=== PATIENT | female | born 1965 | race Hispanic/Latino ===

== ENCOUNTER 2020-02-20 10:25 | Emergency (ER) | payer OTHER, SELFPAY ==
--- NOTE | ~2020-02-20 | US_ITS ---
EXAMINATION: US right upper quadrant EXAM DATE: 02/20/2020 11:47 INDICATION: Right upper quadrant pain. TECHNIQUE: Multiple grayscale and Doppler images of the abdomen right upper quadrant were obtained (b y a technologist who performed the scan) and subsequently reviewed. There is no prior study for jessica lakhani. FINDINGS: The pancreatic head and body are normal in appearance. The pancreatic tail is not visualized. There is echogenic liver parenchyma, hepatic steatosis. Anechoic lesion consistent with cyst in left live r lobe measuring 1.7 cm. There is no evidence of intrahepatic biliary duct dilation. Portal venous flow was seen in the hepatopedal, normal direction and has normal Doppler waveform. No right-sided h ydronephrosis. Common bile duct measures 3 mm, which is normal. The gallbladder wall is normal in thickness, with mo derate amount of distention. No sonographic evidence of pericholecystic fluid. There is cholelithia sis. IMPRESSION: 1. Cholelithiasis, moderately distended but otherwise unremarkable gallbladder. Reviewed, dictated and finalized at location A. IMPRESSION: 1. Cholelithiasis, moderately distended but otherwise unremarkable gallbladder .
[2020-02-20 10:37] VITALS: PULSE 77
--- NOTE | 2020-02-20 10:41 | ECG_ITS ---
Measurements Intervals [place] Rate: 76 P: 27 [place]: 149 QRS: 16 QRSD: 87 T: 2 QT: 371 QTc: 419 Interpretive Statements SINUS RHYTHM BORDERLINE T WAVE ABNORMALITY- INFERIOR LEADS BORDERLINE ECG Electronically Signed On 02-20-2020 10:51:12 CDT by Ted Cowan D.O.
--- NOTE | 2020-02-20 11:02 | ED.CHESTPAIN ---
HPI - Chest Pain General Chief Complaint: Chest Pain <Otf Danielle PA-C - Last Filed: 02/20/20 13:45> Stated Complaint: epigastric pain <Otf Danielle PA-C - Last Filed: 02/20/20 13:45> Time Seen by Provider: 02/20/20 10:30 <Otf Danielle PA-C - Last Filed: 02/20/20 13:45> Source: patient <Otf Danielle PA-C - Last Filed: 02/20/20 13:45> Mode of arrival: ambulatory <Otf Danielle PA-C - Last Filed: 02/20/20 13:45> Limitations: no limitations <Otf Danielle PA-C - Last Filed: 02/20/20 13:45> History of Present Illness HPI narrative: Patient is a 54-year-old female who presents with epigastric abdominal pain that woke her from her sleep 2 days ago has remained constant and is nonradiating took Pepcid with no improvement. Denies any fever chills nausea vomiting URI symptoms or any dyspnea. Patient denies similar occurrence in the past patient presents per private vehicle in no distress. <Otf Danielle PA-C - Last Filed: 02/20/20 13:45> Related Data Allergies/Adverse Reactions: Allergies Allergy/AdvReac Type Severity Reaction Status Date / Time No Known Allergies Allergy Verified 02/20/20 10:38 <Otf Danielle PA-C - Last Filed: 02/20/20 13:45> Review of Systems Review of Systems: All systems reviewed & are unremarkable except as noted in HPI and below <Otf Danielle PA-C - Last Filed: 02/20/20 13:45> [facility] Past Medical History Medical History: Medical History (Updated 02/20/20 @ 13:42 by Otf Danielle PA-C) Obesity <Otf Danielle PA-C - Last Filed: 02/20/20 13:45> Surgical History Surgical History: Surgical History (Updated 02/20/20 @ 11:04 by Otf Danielle PA-C) H/O section <Otf Danielle PA-C - Last Filed: 02/20/20 13:45> Social History Social History: Social History (Updated 02/20/20 @ 11:04 by JUAN Lemus Smoking status: Never smoker <Otf Danielle PA-C - Last Filed: 02/20/20 13:45> Exam Narrative: Exam Narrative: GENERAL: Well-appearing, obese, and in no acute distress. HEAD: Normocephalic, atraumatic. EYES: PERRLA and EOMI. ENT: Nares clear, no rhinorrhea or epistaxis. Mucous membranes moist. CHEST: Clear to auscultation. No respiratory distress. No wheezes rales or rhonchi HEART: Regular rate and rhythm. No murmur heard. Normal peripheral pulses. ABDOMEN: Soft, epigastric tenderness to palpation, nondistende EXTREMITIES: Normal range of motion. No edema. SKIN: Warm, dry, no rash. NEURO: No focal deficits. Alert and oriented x3. PSYCH: Normal mood and affect. <Otf Danielle PA-C - Last Filed: 02/20/20 13:45> Course Course Emergency Course: Patient in the room aware of case findings treatment plan and diagnosis agreeing to follow-up with primary care as instructed and general surgery aware of the case findings treatment plan and diagnosis resting comfortably in the room in no distress noting that the GI cocktail resolved her pain. Patient agreeing to follow-up with general surgery and primary care <Otf Danielle PA-C - Last Filed: 02/20/20 13:45> Consultations Consultation #1: Spoke with general surgery who has reviewed the case and notes that the patient can follow-up on an outpatient basis provided with reasons to return does not recommend any antibiotics at this time <Otf Danielle PA-C - Last Filed: 02/20/20 13:45> Date: 02/20/20 <Otf Danielle PA-C - Last Filed: 02/20/20 13:45> Vital Signs Vital signs: Vital Signs Pulse Rate 77 02/20/20 10:37 Temperature 98.2 F 02/20/20 11:55 Pulse Rate 76 02/20/20 13:57 Respiratory Rate 16 02/20/20 13:57 Blood Pressure 116/63 02/20/20 13:57 Pulse Oximetry 96 02/20/20 13:57 <Otf Danielle PA-C - Last Filed: 02/20/20 13:45> Vital Signs Pulse Rate 77 02/20/20 10:37 Temperature 98.2 F 02/20/20 11:55 Pulse Rate
[2020-02-20 11:22] LABS: Add Urine Microscopic? YES; Appearance Urine Clear (Clear); Bacteria Urine Trace /hpf; Bilirubin Urine Negative (Negative); Blood Urine 1+ (Negative); Color Urine Colorless (Yellow); Glucose Urine UA Negative (Negative); Ketones Urine Negative (Negative); Leukocyte Esterase Ur Negative LEU/UL (Negative); Nitrate Urine Negative (Negative); Protein Urine Negative (Negative); RBC Urine 0-2 /hpf (0-2); Specific Grav Ur 1.008 (1.001-1.035); Squamous Epithelial Cell Urine Rare /hpf (Few); Urobilinogen Urine Negative mg/dL (<2.0); WBC Urine 0-3 /hpf
[2020-02-20] MEDS: LIDOCAINE HCL 2% VISC SOLN 15 ML UDC 20 ML PO (11:52)
[2020-02-20] MEDS: MAG HYDROX/AL HYDROX/SIMETH 30 ML UDC PO (11:52)
--- NOTE | 2020-02-20 11:54 | PC.NURSE ---
Pt back in room from CT scan. Called Keena Giraldo in regards to starting IV on pt. Had to leave message for her to call back,.
[2020-02-20 11:55] VITALS: PULSE 85; RESP 15; TEMP 36.8; O2SAT 98
[2020-02-20 12:11] LABS: Basophils Percent Auto 0.2 % (0.2-1.2); Eosinophils Percent Auto 0.2 % (0-4.4); Hematocrit 40.8 % (37.0-47.0); Hemoglobin 12.4 g/dL (12.0-15.0); Immature Granulocyte Absolute 0.02 K/mm3 (0.00-0.031); Immature Granulocyte Percent A 0.2 % (0-0.5); Lymphocytes Absolute Auto 1.39 K/mm3 (0.9-3.2); Lymphocytes Percent Auto 15.4 % (18.3-44.2); Mean Corpuscular HGB Conc 30.4 g/dl (32-36); Mean Corpuscular Volume 72.3 fl (80-100); Mean Platelet Volume 9.9 fl (7.4-10.4); Monocytes Absolute Auto 0.6 K/mm3 (0.1-0.6); Monocytes Percent Auto 6.1 % (2.6-8.5); Neutrophils Percent Auto 77.9 % (45.5-73.1); Platelet Count Result 317 k/mm3 (150-375); Red Blood Count 5.64 M/mm3 (4.2-5.4); Red Cell Distribution Width 17.3 % (11.5-14.5)
[2020-02-20 12:25] LABS: Alanine Aminotransferase 162 U/L (4-35); Albumin Level 4.5 g/dL (3.5-5.1); Alkaline Phosphatase 128 U/L (38-126); Aspartate Amino Transferase 75 U/L (14-36); Bilirubin,Total 0.5 mg/dL (0.2-1.3); Blood Urea Nitrogen 16 mg/dL (7-17); Calcium 9.1 mg/dL (8.4-10.2); Carbon Dioxide 25 mmol/L (22-30); Chloride 105 mmol/L (98-107); Estimated Glomerular Filt Rate > 60; Glucose 98 mg/dL (65-105); Lipase 90 U/L (23-300); Potassium 3.9 mmol/L (3.4-5.0); Sodium 138 mmol/L (137-145)
[2020-02-20] MEDS: SODIUM CHLORIDE 0.9% IV 1,000 ML 999 ML IV CONT (12:34)
[2020-02-20] MEDS: PANTOPRAZOLE SODIUM IV 40 MG VIAL IV PUSH (12:35)
[2020-02-20] MEDS: ONDANSETRON INJ 4 MG/2 ML VIAL IV PUSH (12:35)
[2020-02-20 12:40] LABS: Troponin I < 0.012 ng/mL (0.000-0.034)
[2020-02-20 13:57] VITALS: BP 116/63; PULSE 76; RESP 16; O2SAT 96
== END 2020-02-20 13:58 | disposition home or self-care (01) ==
PROVIDERS: Emergency Medicine Emergency Medical Services; Emergency Provider General Practice; PCP Emergency Medicine
DX: R10.13 Epigastric pain (principal); E66.9 Obesity, unspecified; Z68.33 Body mass index [BMI] 33.0-33.9, adult
CPT/HCPCS: 36415; 76705; 80053; 81001; 81025; 83690; 84484; 85025; 93005; 96361; 96365; 96375; 99284; A9270; C9113; J0131; J2405; J7030

== ENCOUNTER 2020-02-29 09:32 | Outpatient (CLI) | payer OTHER, SELFPAY ==
--- NOTE | 2020-02-29 09:36 | ECG_ITS ---
Measurements Intervals [place] Rate: 74 P: 26 [place]: 152 QRS: 17 QRSD: 79 T: 2 QT: 379 QTc: 422 Interpretive Statements SINUS RHYTHM LOW QRS VOLTAGE IN PRECORDIAL LEADS BORDERLINE ECG Electronically Signed On 02-29-2020 10:10:32 CDT by Ted Cowan D.O.
[2020-02-29 10:20] LABS: Alanine Aminotransferase 31 U/L (4-35); Albumin Level 4.3 g/dL (3.5-5.1); Alkaline Phosphatase 93 U/L (38-126); Amylase 84 U/L (30-110); Aspartate Amino Transferase 26 U/L (14-36); Bilirubin,Total 0.5 mg/dL (0.2-1.3)
== END 2020-02-29 09:33 | disposition home or self-care (01) ==
PROVIDERS: PCP Emergency Medicine; Visit Provider Surgery
DX: Z01.812 Encounter for preprocedural laboratory examination (principal); K80.20 Calculus of gallbladder without cholecystitis without obstruction
CPT/HCPCS: 36415; 80076; 82150; 86850; 86900; 86901; 93005

== ENCOUNTER 2020-03-01 16:34 | Outpatient (CLI) | payer OTHER, SELFPAY ==
[2020-03-01 18:41] LABS: Hematocrit 39.4 % (37.0-47.0); Hemoglobin 11.8 g/dL (12.0-15.0); Mean Corpuscular HGB Conc 29.9 g/dl (32-36); Mean Corpuscular Hemoglobin 21.8 pg (26-34); Mean Corpuscular Volume 72.8 fl (80-100); Mean Platelet Volume 9.9 fl (7.4-10.4); Platelet Count Result 292 k/mm3 (150-375); Red Blood Count 5.41 M/mm3 (4.2-5.4); Red Cell Distribution Width 16.9 % (11.5-14.5); White Blood Count 7.1 K/mm3 (4.5-10.0)
[2020-03-01 18:53] LABS: Alanine Aminotransferase 29 U/L (4-35); Albumin Level 4.1 g/dL (3.5-5.1); Alkaline Phosphatase 87 U/L (38-126); Aspartate Amino Transferase 22 U/L (14-36); Bilirubin,Total 0.3 mg/dL (0.2-1.3); INR 0.9; Prothrombin Time 11.9 Seconds (11.1-14.7)
[2020-03-01 18:54] LABS: Partial Thromboplastin Time 29.1 SECONDS (22.3-36.8)
[2020-03-01 19:00] LABS: Transferrin 340 mg/dL (206-381)
[2020-03-01 19:06] LABS: Iron 26 ug/dL (37-170)
[2020-03-01 19:15] LABS: Erythrocyte Sedimentation Rate 12 mm/hr (0-20); Percent Iron Saturation 5 % (20-50)
[2020-03-01 19:39] LABS: Hepatitis B Surface Antigen Negative (Negative)
[2020-03-01 19:42] LABS: Ferritin 4.81 ng/mL (11.1-264)
[2020-03-01 19:45] LABS: HAV RESULT Negative (Negative); Hepatitis B Core IgM Result Negative (Negative)
[2020-03-01 19:56] LABS: Hepatitis C Virus Antibody Negative (Negative)
[2020-03-06 11:37] LABS: Mitochondrial (M2) Ab (IgG) <=20.0 U (<=20.0)
[2020-03-06 11:51] LABS: Alpha-1-Antitrypsin, QN 125 mg/dL (83-199); Ceruloplasmin 29 mg/dL (18-53)
[2020-03-07 11:34] LABS: Actin Antibody (IgG) 20 U (<20)
== END 2020-03-01 16:35 | disposition home or self-care (01) ==
PROVIDERS: PCP Emergency Medicine; Visit Provider Internal Medicine Gastroenterology
DX: K76.0 Fatty (change of) liver, not elsewhere classified (principal); K80.20 Calculus of gallbladder without cholecystitis without obstruction
CPT/HCPCS: 36415; 80074; 80076; 82103; 82390; 82728; 83516; 83520; 83540; 83550; 84466; 85027; 85610; 85652; 85730; 86038

== ENCOUNTER 2020-03-03 01:02 | Outpatient (CLI) | payer OTHER, SELFPAY ==
[2020-03-03 18:30] LABS: SARS-CoV-2 RNA PCR Negative
== END 2020-03-03 01:03 | disposition home or self-care (01) ==
LOC: ANHCOVIDDT 01:03
PROVIDERS: PCP Emergency Medicine; Visit Provider Surgery
DX: Z01.818 Encounter for other preprocedural examination (principal); Z11.59 Encounter for screening for other viral diseases
CPT/HCPCS: 87635; C9803; U0003

== ENCOUNTER 2020-03-06 02:05 | Day surgery (SDC) | payer OTHER, SELFPAY ==
[2020-02-27 11:50] VITALS: BMI 33.4
[2020-03-06] VITALS (8 sets, daily range): BP systolic 107–124; BP diastolic 65–76; PULSE 78–107; RESP 14–107; TEMP 36.1–36.4; O2SAT 93–100
--- NOTE | 2020-03-06 10:01 | P.PNAN_ITS ---
Anes - Initial Pre Proc Eval Procedure: Operation Date: 03/06/20 14:00 Proposed Procedures p Laparoscopic Cholecystectomy, Possible Open - Sid Rivers DO Date/Time: 03/06/20 10:01 Surgeon: Sid Rivers DO Pre Op Diagnosis: Symptomatic Cholelithiasis Patient Data Age: 54 Gender: F Height: 1.47 m Weight: 72.57 kg Allergies Allergy/AdvReac Type Severity Reaction Status Date / Time No Known Allergies Allergy Verified 03/06/20 11:39 Home Medications Medication Instructions Recorded Confirmed Type hydrocodone-acetaminophen [[place]] 1 tablet PO Q6H PRN #14 tablet 02/20/20 02/27/20 Rx hyoscyamine sulfate [Levsin] 0.125 mg PO QID PRN #10 tablet 02/20/20 02/27/20 Rx pantoprazole [Protonix] 40 mg PO QAM #10 tablet 02/20/20 02/27/20 Rx ascorbic acid (vitamin C) 500 mg PO DAILY 02/27/20 02/27/20 History ondansetron 4 mg PO Q6H PRN 02/27/20 02/27/20 History Patient hx anesthesia problems: post op nausea/vomiting Family hx anesthesia problems: none PMFSH Social History Social History Smoking status: Never smoker Alcohol intake: never Substance use: never Gender identity (if verbalized by the patient): Female Spiritual care concerns: No Anes - Eval Final PreProcedure Day of Procedure 03/06/20 10:01 Patient weight: obese Heart: regular rate and rhythm Lungs: clear to auscultation and normal air movement Airway: Mallampati scale class II Neurological: alert and oriented Last oral intake: >/= 8 hours ASA classification: II Emergent: no Anesthetic plan: proceed Anesthesia type and monitoring: general ETT and standard monitoring Informed Consent: The patient's anesthetic plan and its attendant risks and benefits were discussed with the patient/family/POA. Questions were solicited and answers provided to the satisfaction of the patient/family/POA.
--- NOTE | 2020-03-06 11:17 | WPDHPUPDATE1 ---
History and Physical Update Update Date/Time: 03/06/20 11:17 History and Physical has been reviewed, including an updated exam of the patient. There are NO changes in the patient's condition. Risks, benefits, and alternatives have been discussed and questions answered. Patient agrees to proceed with procedure.
[2020-03-06] MEDS: KETOROLAC 15 MG/ML VIAL (*BKC) IV PUSH (11:30)
[2020-03-06] MEDS: LACTATED RINGERS 1,000 ML 30 ML IV CONT (11:30)
[2020-03-06] MEDS: SCOPOLAMINE 1.5 MG PATCH TRANSDERM (11:50)
[2020-03-06] MEDS: ONDANSETRON INJ 4 MG/2 ML VIAL IV PUSH (11:50)
[2020-03-06] MEDS: FAMOTIDINE 20 MG/2 ML VIAL IV PUSH (11:50)
[2020-03-06] MEDS: ceFAZolin 2 GM/D5W 50 ML 2 GM/50 ML BAG IVPB (12:13)
[2020-03-06] MEDS: BUPIVACAINE/EPINEPHRINE 0.5% 10 ML VIAL 30 ML INFILTRATE (12:25)
--- NOTE | 2020-03-06 13:10 | PM.PROC ---
Procedure Note - Detailed Date of procedure: 03/06/20 Pre-op diagnosis: Symptomatic Cholelithiasis Post-op diagnosis: same Procedure performed: Laparoscopic Cholecystectomy Description of procedure: Procedure as well as risks, benefits, and alternatives were discussed with patient. Written consent was obtained and placed in chart prior to procedure. The patient was brought back to surgical suite. Patient was placed in supine position on operating table. Time-out was done to confirm patient and procedure. Patient was then intubated by the anesthesia department. Abdomen was prepped and draped in sterile fashion using chlorhexidine prep. 0.5% bupivacaine with epinephrine was infiltrated at each site of incision. A 5 millimeter incision was made near the umbilicus, and a 5 millimeter Optiview trocar was advanced through the abdominal layers under direct visualization. Once inside the abdominal cavity, carbon dioxide was insufflated to create a pneumoperitoneum. The camera was inserted and the abdomen was inspected. No immediate abnormalities were identified. The patient was placed in reverse Trendelenburg position and rotated slightly to the left. An 11 millimeter incision was made in the subxiphoid region, and an 11 millimeter trocar was inserted under direct visualization. Two 5 millimeter incisions were made in the right upper quadrant, and two 5 millimeter trocars were inserted under direct visualization. The gallbladder was identified and grasped at the fundus and retracted superiorly. It was then grasped at the infundibulum retracted laterally. Careful dissection around the neck of the gallbladder was performed using blunt dissection with a [place] grasper and hook electrocautery. The cystic duct was identified, and a window was created behind it. The cystic artery was also identified and a window was created behind it. The critical view of safety was identified, visualizing the cystic duct running directly into the neck of the gallbladder, and the cystic artery running directly into the wall of the gallbladder. A 5 millimeter clip cable tower operator was then used to place 2 clips proximally and 1 clip distally on both the cystic duct and cystic artery. They were then both transected using endoscopic scissors. Once safely away from the kat hepatitis, the gallbladder was dissected free from the liver bed using hook electrocautery. Hemostasis was achieved along the way. The gallbladder was removed completely and then removed through the subxiphoid port. The liver bed was then inspected. Hemostasis appeared adequate, and our clips appeared secure. The area was gently irrigated with sterile saline. No other abnormalities were seen. The patient was flattened out in bed, and 1 final inspection was made around the abdominal cavity. The subxiphoid port was removed, and a Delbert Zac cone was used to approximate the fascia with an 0-Vicryl simple interrupted suture. The remaining ports were then removed under direct visualization, the camera was removed, and the pneumoperitoneum was released. The skin of the incisions was approximated using 4-0 Monocryl subcuticular sutures. Exofin glue was applied on top. The patient was then awakened from anesthesia, extubated, and transferred to recovery. Anesthesia: GETA and local (0.5% bupivicaine with epi) Surgeon: Sid Rivers DO Estimated blood loss (mL): 5 Drains: No Packing: No Pathology: yes Complications: No immediate complications Condition: stable (Patient tolerated procedure well, and is currently resting comfortably in recovery.) Disposition: same day Findings: Letha presents with RUQ and epigastric pain that radiates to her back for about 1 year. She reports this comes and goes. Nothing seems to help her pain. She reports she had BBQ ribs, fried zucchini for dinner then work up at 3 a.m. with pain. She went to [facility]-20 for chest pain and back and she was given a GI cocktail that seem t
== END 2020-03-06 15:11 | disposition home or self-care (01) ==
PROVIDERS: PCP Emergency Medicine; Visit Provider Surgery
PROC: 0FT44ZZ Resection of Gallbladder, Percutaneous Endoscopic Approach (ICD-10-PCS; CPT 47562; principal; 2020-03-06 14:00)
DX: K80.10 Calculus of gallbladder with chronic cholecystitis without obstruction (principal); E66.9 Obesity, unspecified; Z68.32 Body mass index [BMI] 32.0-32.9, adult
CPT/HCPCS: 47562; 88304; A9270; J0690; J1100; J1885; J2250; J2405; J2704; J3010; J7030; J7120

== ENCOUNTER 2020-03-16 15:31 | Outpatient (CLI) | payer OTHER, SELFPAY ==
--- NOTE | ~2020-03-16 | MM_ITS ---
EXAMINATION: MM screening bon BI w francisco HISTORY: Screening mammogram TECHNIQUE: Craniocaudal and mediolateral oblique 3-D tomosynthesis images were obtained and synthetic 2-D images were generated. CAD analysis was submitted and interpreted. COMPARISON: 05/14/2018 bilateral digital screening mammogram BREAST PARENCHYMAL COMPOSITION: There are scattered areas of fibroglandular density. FINDINGS: There is no evidence of suspicious mass, calcification, or architectural distortion to sugg est malignancy in either breast. There has been no suspicious interval change. IMPRESSION: 1. No mammographic evidence of malignancy. 2. Recommend routine screening mammography in one year. BI-RADS Category 1: Negative Reviewed, dictated and finalized at location A.
== END 2020-03-16 15:32 | disposition home or self-care (01) ==
LOC: ANHIMG 15:42
PROVIDERS: PCP Emergency Medicine; Visit Provider Emergency Medicine
DX: Z12.31 Encounter for screening mammogram for malignant neoplasm of breast (principal)
CPT/HCPCS: 77063; 77067

== ENCOUNTER 2020-05-18 08:06 | Outpatient (CLI) | payer OTHER, SELFPAY ==
--- NOTE | ~2020-05-18 | US_ITS ---
EXAMINATION: US thyroid DATE: 05/18/2020 08:43 INDICATION: Hyperthyroidism TECHNIQUE: Multiple ultrasound images of the thyroid were obtained. COMPARISON: None. FINDINGS: The right thyroid lobe measures 4.0 x 1.7 x 1.8 cm. The left thyroid lobe measures 4.0 x 1.4 x 1.5 c m. There is diffuse heterogeneous echogenicity and coarsened echotexture throughout the thyroid glan d. There are couple wider than tall solid hypoechoic nodules with somewhat poorly defined margins and without internal echogenic foci. (TI-RADS 4, moderately suspicious , FNA if >=1.5 cm, annual followu p is >1 cm) measuring 9 mm in maximal diameter on the right and 8 mm on the left. IMPRESSION: 1. A couple <1 cm TI RADS 4 nodules in the left and right thyroid lobe which do not meet threshold fo r biopsy or follow-up. 2. Diffuse heterogeneously decreased echogenicity with coarsened echotexture throughout the thyroid w hich can be seen with thyroiditis. Reviewed, dictated and finalized at location B. IMPRESSION: 1. A couple <1 cm TI RADS 4 nodules in the left and right thyroid lobe which do not meet threshold for biopsy or follow-up. 2. Diffuse heterogeneously decreased echogenicity with coarsened echotexture th roughout the thyroid which can be seen with thyroiditis.
== END 2020-05-18 08:07 | disposition home or self-care (01) ==
PROVIDERS: PCP Emergency Medicine; Visit Provider Emergency Medicine
DX: E05.90 Thyrotoxicosis, unspecified without thyrotoxic crisis or storm (principal)
CPT/HCPCS: 76536

== ENCOUNTER 2020-05-25 11:14 | Outpatient (CLI) | payer OTHER, SELFPAY ==
[2020-05-25 12:41] LABS: Free T4 Free Thyroxine 1.03 ng/mL (0.78-2.19)
[2020-05-28 04:49] LABS: Thyroid Peroxidase Antibodies 462 IU/mL (<9)
[2020-05-30 05:28] LABS: Triiodothyronine T3 Free 2.9 pg/mL (2.3-4.2)
== END 2020-05-25 11:15 | disposition home or self-care (01) ==
LOC: ANHLAB 11:16
PROVIDERS: PCP Emergency Medicine; Visit Provider Emergency Medicine
DX: E06.9 Thyroiditis, unspecified (principal)
CPT/HCPCS: 36415; 84439; 84443; 84481; 86376

== ENCOUNTER 2020-06-11 08:07 | Emergency (ER) | payer OTHER, SELFPAY ==
[2020-06-11 08:16] VITALS: BP 120/90; PULSE 107; RESP 18; TEMP 36.2; O2SAT 98
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
[2020-06-11] MEDS: SILVER SULFADIAZINE 1% CR 400 GM JAR (*BKC) 1 APPLIC TOPICAL (08:41)
[2020-06-11] MEDS: TETANUS,DIPHTHERIA,AC PERTUSSIS ADULT (0.5 ML) BOOSTRIX IM (08:41)
[2020-06-11] MEDS: IBUPROFEN 400 MG TABLET 800 MG PO (08:41)
== END 2020-06-11 09:29 | disposition home or self-care (01) ==
PROVIDERS: Emergency Provider Emergency Medicine; PCP Emergency Medicine
DX: E07.9 Disorder of thyroid, unspecified (principal); T21.21XA Burn of second degree of chest wall, initial encounter; T31.0 Burns involving less than 10% of body surface; X12.XXXA Contact with other hot fluids, initial encounter; Z23 Encounter for immunization
CPT/HCPCS: 16020; 90471; 90715; 99283; A9270

== ENCOUNTER 2020-06-16 11:02 | Emergency (ER) | payer OTHER, SELFPAY ==
[2020-06-16 11:06] VITALS: BP 125/79; PULSE 99; RESP 18; TEMP 35.9; O2SAT 100
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
[2020-06-16 12:38] LABS: Basophils Percent Auto 0.5 % (0.2-1.2); Eosinophils Absolute Auto 0.1 K/mm3 (0-0.3); Eosinophils Percent Auto 0.7 % (0-4.4); Hematocrit 45.1 % (37.0-47.0); Hemoglobin 13.9 g/dL (12.0-15.0); Immature Granulocyte Absolute 0.03 K/mm3 (0.00-0.031); Immature Granulocyte Percent A 0.4 % (0-0.5); Lymphocytes Absolute Auto 2.02 K/mm3 (0.9-3.2); Lymphocytes Percent Auto 24.1 % (18.3-44.2); Mean Corpuscular HGB Conc 30.8 g/dl (32-36); Mean Corpuscular Hemoglobin 24.1 pg (26-34); Mean Corpuscular Volume 78.2 fl (80-100); Mean Platelet Volume 9.6 fl (7.4-10.4); Monocytes Absolute Auto 0.5 K/mm3 (0.1-0.6); Monocytes Percent Auto 6.2 % (2.6-8.5); Neutrophils Absolute Auto 5.7 K/mm3 (1.3-6.7); Neutrophils Percent Auto 68.1 % (45.5-73.1); Platelet Count Result 295 k/mm3 (150-375); Red Blood Count 5.77 M/mm3 (4.2-5.4); Red Cell Distribution Width 19.3 % (11.5-14.5); White Blood Count 8.4 K/mm3 (4.5-10.0)
== END 2020-06-16 12:52 | disposition home or self-care (01) ==
PROVIDERS: Emergency Medicine Emergency Medical Services; Emergency Provider Emergency Medicine; PCP Emergency Medicine
DX: N61.0 Mastitis without abscess (principal); E07.9 Disorder of thyroid, unspecified; E66.9 Obesity, unspecified; Z68.30 Body mass index [BMI] 30.0-30.9, adult
CPT/HCPCS: 36415; 85025; 99283

== ENCOUNTER 2020-08-08 15:44 | Outpatient (CLI) | payer OTHER, SELFPAY ==
--- NOTE | ~2020-08-08 | XR_ITS ---
EXAMINATION: XR sinus <3V EXAM DATE: 08/08/2020 16:25 INDICATION: Lacrimal tear duct surgery. TECHNIQUE: Frontal projection of these sinuses, orbits. There is no prior study for comparison. FINDINGS: Some dental fillings, no other radiopaque foreign bodies. Sinuses appear clear. IMPRESSION: No orbital metal. Reviewed, dictated and finalized at location A. PER AND TURNER IMPRESSION: No orbital metal.
--- NOTE | ~2020-08-08 | MR_ITS ---
EXAMINATION: MR abdomen wo/w con DATE: 08/08/2020 17:24 INDICATION: Liver mass. TECHNIQUE: Magnetic resonance imaging (MRI) of the abdomen was performed without and with 13 mL Multi Mikey intravenous contrast. Sequences included coronal T2-weighted FS FSE, coronal and axial FS FIEST A, axial T2-weighted FSE, coronal LAVA-flex, axial STIR FSE, axial DWI, axial dual-echo T1-weighted F SPGR, and axial LAVA. Postcontrast sequences included coronal LAVA-flex and a time course of axial LA VA. COMPARISON: None. FINDINGS: There is diffuse hepatic steatosis. There is a 15 mm cyst in left hepatic lobe. The gallbladder is ab sent. The spleen, pancreas, adrenal glands, and right kidney are normal. There is a 9 mm cyst in left kidney. There are no dilated loops of bowel. There are no pathologically enlarged lymph nodes. There is no free intraperitoneal fluid. IMPRESSION: 1. 15 mm benign cyst in the liver. 2. Diffuse hepatic steatosis. Reviewed, dictated and finalized at location A. WORKER
[2020-08-08 16:47] LABS: Estimated Glomerular Filt Rate 58
== END 2020-08-08 15:45 | disposition home or self-care (01) ==
PROVIDERS: PCP Emergency Medicine; Visit Provider Internal Medicine Gastroenterology
DX: K76.89 Other specified diseases of liver (principal); K76.0 Fatty (change of) liver, not elsewhere classified
CPT/HCPCS: 70210; 74183; A9577

== ENCOUNTER 2021-03-16 13:16 | Emergency (ER) | payer OTHER, SELFPAY ==
[2021-03-16 13:32] VITALS: BP 108/77; PULSE 86; RESP 16; TEMP 36.1; O2SAT 97
--- NOTE | 2021-03-16 13:37 | ED.URI ---
HPI - URI/Sore Throat General Chief Complaint: Upper Respiratory Infection Stated Complaint: sore throat/ear pain/moore Time Seen by Provider: 03/16/21 13:37 Source: patient Mode of arrival: ambulatory Limitations: no limitations History of Present Illness HPI Narrative: Letha Page is a 55 yo female with a prior history of hypertension, repair, [facility] of sinus congestion and sore throat x3 to 4 days She had Covid June after heart surgery that was done. She had a second Covid vaccine on Thursday Related Data Home Medications Medication Instructions Recorded Confirmed nitrofurantoin monohyd/m-cryst 1 mg PO BID 03/16/21 03/16/21 valacyclovir 1,000 mg PO DAILY 03/16/21 03/16/21 Allergies Allergy/AdvReac Type Severity Reaction Status Date / Time No Known Allergies Allergy Verified 03/16/21 13:58 Review of Systems Review of Systems: CONSTITUTIONAL: Denies fever, chills, sweats. EYES: Denies visual changes, redness, discharge. ENT: Denies rhinorrhea, has congestion, has sore throat, otalgia. Sinus congestion CARDIOVASCULAR: Denies chest pain, palpitations, edema. RESPIRATORY: Denies dyspnea, wheezing, cough GASTROINTESTINAL: Denies abdominal pain, nausea, vomiting, diarrhea. GENITOURINARY: Denies dysuria, hematuria, abnormal discharge SKIN: Denies rash or itching. NEUROLOGIC: Denies numbness, or focal weakness. PSYCHIATRIC: Denies anxiety or depression. [facility] Past Medical History Medical History (Updated 03/16/21 @ 14:16 by Mary Watson CNP) History of thyroid disease Obesity Surgical History Surgical History H/O section Hx laparoscopic cholecystectomy Family History Family History Mother Hypertension Diabetes mellitus Social History Social History Smoking status: Never smoker Alcohol intake: never Substance use: never Gender identity (if verbalized by the patient): Female Spiritual care concerns: No Comments At time of signature, I agree with nursing past medical, surgical, social and family history. There is no relevant family history pertinent to the presenting complaint. Exam Narrative: GENERAL: This is a well-nourished, well-developed patient, in mild distress. HEAD: normocephalic, atraumatic. EYES: Sclera clear/white. Vision is grossly intact. EARS: External ears normal, auditory canals pink and without drainage, TMs moderate bulging. Hearing grossly intact. NOSE: External nose normal without nasal discharge, nares without redness, no rhinorrhea. THROAT: Mucous membranes moist, posterior pharynx mild erythema NECK: Neck supple, non-tender CARDIOVASCULAR: Regular rate and rhythm without murmurs, gallops, or rubs. RESPIRATORY: Clear to auscultation. Breath sounds equal bilaterally. No wheezes, rales, or rhonchi. GASTROINTESTINAL: Abdomen soft, SKIN: warm, intact with no suspicious lesions or rash, good texture and turgor. NEURO: awake, alert, and oriented to person, place and time. There were no obvious focal neurologic abnormalities. Steady gait EXTREMITIES: Normal range of motion. BACK: Nontender without deformity Course Course Emergency Course: Patient comes to [facility] with her daughter for assessment of upper respiratory systems including head congestion bilateral ear pain and sore throat Covid test negative-PCR sent Strep test negative Started on Z-Ronnell and prednisone, Zyrtec Vital Signs Vital signs: Vital Signs Temperature 97.0 F L 03/16/21 13:32 Pulse Rate 86 03/16/21 13:32 Respiratory Rate 16 03/16/21 13:32 Blood Pressure 108/77 03/16/21 13:32 Pulse Oximetry 97 03/16/21 13:32 Temperature 97.0 F L 03/16/21 13:32 Pulse Rate 86 03/16/21 13:32 Respiratory Rate 16 03/16/21 13:32 Blood Pressure 108/77 03/16/21 13:32 Pulse Oxim
[2021-03-18 18:30] LABS: SARS-CoV-2 RNA PCR Negative
== END 2021-03-16 14:25 | disposition home or self-care (01) ==
PROVIDERS: Emergency Provider Nurse Practitioner; PCP Emergency Medicine
DX: J01.10 Acute frontal sinusitis, unspecified (principal); Z20.822 Contact with and (suspected) exposure to COVID-19; E66.9 Obesity, unspecified; Z68.31 Body mass index [BMI] 31.0-31.9, adult; I10 Essential (primary) hypertension; E07.9 Disorder of thyroid, unspecified
CPT/HCPCS: 87081; 87426; 87880; 99213; C9803; G0463; U0003; U0005

== ENCOUNTER 2021-05-16 10:44 | Outpatient (CLI) | payer OTHER, SELFPAY ==
--- NOTE | ~2021-05-16 | XR_ITS ---
XR foot LT min 3V DATE: 05/16/2021 11:05 INDICATION: Left foot pain TECHNIQUE: 4 views COMPARISON: None FINDINGS: There is plantar calcaneal enthesopathy and minimal posterior calcaneal enthesopathy. There is mild osteoarthritis at the first metatarsophalangeal joint. No fracture or dislocation, periosteal reaction or bone destruction. IMPRESSION: Mild osteoarthritis at first metatarsophalangeal joint Calcaneal enthesopathy Reviewed, dictated and finalized at location [facility].
--- NOTE | ~2021-05-16 | XR_ITS ---
XR knee RT 3V DATE: 05/16/2021 11:05 INDICATION: Right knee pain TECHNIQUE: 3 views COMPARISON: 12/2003 right knee FINDINGS: No fracture or dislocation or joint effusion, periosteal reaction or bone destruction, radi opaque interarticular loose body or chondrocalcinosis. Joint spaces are preserved. IMPRESSION: Negative Reviewed, dictated and finalized at location [facility]. IMPRESSION: Negative
== END 2021-05-16 10:45 | disposition home or self-care (01) ==
LOC: ANHIMG 10:47
PROVIDERS: PCP Emergency Medicine; Visit Provider Physician Assistant
DX: M77.32 Calcaneal spur, left foot (principal); M19.072 Primary osteoarthritis, left ankle and foot; M25.561 Pain in right knee
CPT/HCPCS: 73562; 73630

== ENCOUNTER 2021-08-08 08:33 | Emergency (ER) | payer OTHER, SELFPAY ==
[2021-08-08 08:49] VITALS: BP 130/85; PULSE 102; RESP 16; TEMP 36.5; O2SAT 100
--- NOTE | 2021-08-08 08:54 | ED.URI ---
HPI - URI/Sore Throat General Chief Complaint: Upper Respiratory Infection Stated Complaint: sore throat Time Seen by Provider: 08/08/21 08:54 Source: patient, RN notes reviewed and old records reviewed Mode of arrival: ambulatory Limitations: no limitations History of Present Illness HPI Narrative: 55-year-old female who presents to [facility] with complaints of sore throat, headache, coughing which is productive of yellowish mucus since yesterday. Patient reports that she has taken some mucus DM for her cough without resolution of symptoms. Patient reports that she has had Covid vaccinations but she has not had a flu shot this year. Patient denies any shortness of breath denies any fevers chills or any body aches. Related Data Home Medications Medication Instructions Recorded Confirmed ergocalciferol (vitamin D2) 1,250 mcg PO DAILY 08/08/21 08/08/21 levothyroxine 25 mcg PO DAILY 08/08/21 08/08/21 valacyclovir 500 mg PO DAILY 08/08/21 08/08/21 Allergies Allergy/AdvReac Type Severity Reaction Status Date / Time No Known Allergies Allergy Verified 08/08/21 09:11 Review of Systems Review of Systems: CONSTITUTIONAL: Denies fever, chills, or sweats. EYES: Denies visual changes, redness, or discharge. ENT: Positive rhinorrhea, congestion, sore throat, no otalgia. CARDIOVASCULAR: Denies chest pain, palpitations, or edema. RESPIRATORY: Positive cough no dyspnea. GASTROINTESTINAL: Denies abdominal pain, nausea, vomiting, or diarrhea. GENITOURINARY: Denies dysuria or hematuria. SKIN: Denies rash or itching. MUSCULOSKELETAL: Denies back pain, joint pain, no body aches NEUROLOGIC: Positive headache, no numbness, or weakness. PSYCHIATRIC: Denies anxiety or depression. All systems reviewed & are unremarkable except as noted in HPI and below PMFSH Past Medical History Medical History (Updated 08/08/21 @ 09:24 by Catherine Day NP) History of thyroid disease Obesity Surgical History Surgical History H/O section Hx laparoscopic cholecystectomy Family History Family History Mother Hypertension Diabetes mellitus Social History Social History Smoking status: Never smoker Alcohol intake: never Substance use: never Gender identity (if verbalized by the patient): Female Spiritual care concerns: No Comments At time of signature, agree with nursing past medical, surgical, social and family history. There is no relevant family history pertinent to the presenting complaint Exam Narrative: GENERAL: Well-appearing, well-nourished, and in no acute distress. HEAD: Normocephalic, atraumatic. EYES: PERRLA and EOMI. ENT: Nares mild redness with clear rhinorrhea no epistaxis. Mucous membranes moist. TMs normal with good light reflex. Throat mildly red no exudates or lesions no tonsil enlargement NECK: Supple. No lymphadenopathy CHEST: Clear to auscultation. No respiratory distress. Positive cough SaO2 100% on room air HEART: Regular rate and rhythm. No murmur heard. Normal peripheral pulses. ABDOMEN: Soft, nontender, nondistended, normal active bowel sounds. EXTREMITIES: Normal range of motion. No edema. SKIN: Warm, dry, no rash. NEURO: No focal deficits. Alert and oriented x3. Course Course Level of Care: Express Care Visit Vital Signs Vital signs: Vital Signs Temperature 36.5 C 08/08/21 08:49 Pulse Rate 102 H 08/08/21 08:49 Respiratory Rate 16 08/08/21 08:49 Blood Pressure 130/85 08/08/21 08:49 Pulse Oximetry 100 08/08/21 08:49 Temperature 36.5 C 08/08/21 08:49 Pulse Rate 102 H 08/08/21 08:49 Respiratory Rate 16 08/08/21 08:49 Blood Pressure 130/85 08/08/21 08:49 Pulse Oximetry 100 08/08/21 08:49 MDM - URI/Sore Throat Differential Diagnosis Differential diagnosis: Likely upper respirato
== END 2021-08-08 09:30 | disposition home or self-care (01) ==
PROVIDERS: Emergency Provider Registered Nurse; PCP Physician Assistant
DX: R05.9 Cough, unspecified (principal); J02.9 Acute pharyngitis, unspecified; J06.9 Acute upper respiratory infection, unspecified; E07.9 Disorder of thyroid, unspecified; E66.9 Obesity, unspecified; Z68.31 Body mass index [BMI] 31.0-31.9, adult
CPT/HCPCS: 87081; 87880; 99213; G0463

== ENCOUNTER → 2021-08-14 02:26 | Outpatient (CLI) | payer OTHER, SELFPAY ==
[2021-08-15 01:23] LABS: SARS-CoV-2 RNA PCR Positive
== END ==
PROVIDERS: PCP Family Medicine; Visit Provider Family Medicine
DX: U07.1 COVID-19 (principal)
CPT/HCPCS: C9803; U0003; U0005

== ENCOUNTER 2023-02-13 11:29 | Emergency (ER) | payer OTHER, SELFPAY ==
--- NOTE | ~2023-02-13 | US_ITS ---
US breast RT limited DATE: 02/13/2023 14:14 INDICATION: Right breast erythema, tenderness, subareolar and inferior subareolar area TECHNIQUE: Real-time imaging of subareolar and inferior subareolar area COMPARISON: 03/16/2020 bilateral screening mammogram FINDINGS: No suspicious mass or shadowing or abscess is identified. Last screening mammogram was 03/16/2020. Bilateral screening mammogram examinations recommended. IMPRESSION: No abscess suspicious mass is identified Recommendation: Bilateral screening mammogram Reviewed, dictated and finalized at [facility]. Reviewed, dictated and finalized at location [facility].
[2023-02-13 11:33] VITALS: BP 123/77; PULSE 114; RESP 16; TEMP 36.6; O2SAT 98
--- NOTE | 2023-02-13 13:40 | ED.GENADULT ---
HPI - General Adult General Chief complaint: Skin/Abscess/Foreign Body Stated complaint: breast pain Time Seen by Provider: 02/13/23 11:51 Source: patient Mode of arrival: ambulatory Limitations: no limitations History of Present Illness HPI narrative: This is a 57-year-old female who presents to the ED with chief complaint of right breast pain, redness and swelling for the past 2 days. States she has had normal mammograms in the past. She denies drainage. Reports the area is tender to touch. Reports it is mildly swollen compared to the left side. Denies any recent injuries, lesions. Denies fevers, chills, nausea, vomiting or any further complaint. Related Data Home Medications Medication Instructions Recorded Confirmed ergocalciferol (vitamin D2) 1,250 1,250 mcg PO DAILY 08/08/21 08/08/21 mcg (50,000 unit) capsule levothyroxine 25 mcg tablet 25 mcg PO DAILY 08/08/21 08/08/21 valacyclovir 500 mg tablet 500 mg PO DAILY 08/08/21 08/08/21 Allergies Allergy/AdvReac Type Severity Reaction Status Date / Time No Known Allergies Allergy Verified 02/13/23 12:31 [facility] Past Medical History Medical History (Updated 02/13/23 @ 19:25 by Dionicio Cano PA-C) History of thyroid disease Obesity Surgical History Surgical History H/O section Hx laparoscopic cholecystectomy Family History Family History Mother Hypertension Diabetes mellitus Social History Social History Smoking status: Never smoker Alcohol intake: never Substance use: never Living arrangements: with family Occupation/Education: unemployed Gender identity (if verbalized by the patient): Female Spiritual care concerns: No Exam Narrative: GENERAL: Well-appearing, well-nourished, and in no acute distress. HEAD: Normocephalic, atraumatic. EYES: PERRLA and EOMI. ENT: Nares clear, no rhinorrhea or epistaxis. Mucous membranes moist. Oropharynx without tonsillar hypertrophy exudate or other lesions. NECK: Supple. No adenopathy or masses. CHEST: No respiratory distress. Clear to auscultation. No wheezes rales or rhonchi HEART: Regular rate and rhythm. No murmur heard. Normal peripheral pulses. ABDOMEN: Soft, nontender, nondistended, normal active bowel sounds. MSK: Normal range of motion. No edema. SKIN: Warm, dry, no rash. NEURO: Alert and oriented x3. No focal deficits. PSYCH: Normal mood and affect. Breast exam done with female RN hospital tray service worker present: There is an area of erythema to the inferior right breast and inferior areola. It is tender to touch. There seems to be an area of swelling around the areola. No drainage. Bedside ultrasound does not reveal any obvious abscess. Left breast is intact. Course Vital Signs Vital signs: Vital Signs Temperature 97.8 F 02/13/23 11:33 Pulse Rate 114 H 02/13/23 11:33 Respiratory Rate 16 02/13/23 11:33 Blood Pressure 123/77 02/13/23 11:33 Pulse Oximetry 98 02/13/23 11:33 Oxygen Delivery Room Air 02/13/23 11:33 Temperature 97.8 F 02/13/23 11:33 Pulse Rate 74 02/13/23 15:43 Respiratory Rate 18 02/13/23 15:43 Blood Pressure 123/77 02/13/23 11:33 Pulse Oximetry 97 02/13/23 15:43 Oxygen Delivery Room Air 02/13/23 11:33 Medical Decision Making [facility] Narrative Medical decision making narrative: This is a 57-year-old female who presents to the ED with chief complaint of right breast pain and tenderness for the past couple of days. Vitals show initial tachycardia to 114 but this resolved to 74. She is hemodynamically stable. No systemic signs on exam. She does have some focal tenderness and erythema to the right breast with a lump palpated. Unable to visualize any obvious abscess bedside ultrasound discussed with radiology and we agreed to get a stat ultrasound to
[2023-02-13 15:43] VITALS: PULSE 74; RESP 18; O2SAT 97
== END 2023-02-13 15:44 | disposition home or self-care (01) ==
PROVIDERS: Emergency Provider Physician Assistant; PCP Family Medicine
DX: N61.0 Mastitis without abscess (principal)
CPT/HCPCS: 76642; 99284

== ENCOUNTER 2023-07-28 09:41 | Outpatient (CLI) | payer OTHER, SELFPAY ==
--- NOTE | ~2023-07-28 | MM_ITS ---
EXAMINATION: MM diagnostic bon BI w francisco HISTORY: Screening examination was recommended on 02/13/2023 and limited right breast ultrasound exami nation due to the last screening mammogram dating back to 03/16/2020. TECHNIQUE: ML, MLO and CC 3-D tomosynthesis images of both breasts were performed and synthetic 2-D i mages were generated. CAD analysis was submitted and interpreted. COMPARISON: 02/13/2023 and limited right breast ultrasound 03/16/2020, 05/14/2018 bilateral screening mammogram exa minations BREAST PARENCHYMAL COMPOSITION: There are scattered areas of fibroglandular density. FINDINGS: No suspicious mass or architectural distortion, malignant calcification, skin thickening or retraction or significant new or developing density is detected. IMPRESSION: 1. No mammographic evidence of malignancy 2. Routine annual mammographic screening is recommended BI-RADS Category 1: Negative Reviewed, dictated and finalized at location [facility]. [employer]
== END 2023-07-28 09:42 | disposition home or self-care (01) ==
PROVIDERS: PCP Family Medicine; Visit Provider Physician Assistant
DX: N63.0 Unspecified lump in unspecified breast (principal)
CPT/HCPCS: 77062; 77066; G0279

== ENCOUNTER 2023-11-06 13:39 | Emergency (ER) | payer OTHER, SELFPAY ==
[2023-11-06 13:56] VITALS: BP 123/69; PULSE 88; RESP 16; TEMP 36.9; O2SAT 100
--- NOTE | 2023-11-06 14:52 | ED.URI ---
HPI - URI/Sore Throat General Chief Complaint: Upper Respiratory Infection Stated Complaint: throat issue Time Seen by Provider: 11/06/23 14:52 Source: patient Mode of arrival: ambulatory Limitations: no limitations History of Present Illness HPI Narrative: 57-year-old female presents with complaint of irritation and burning sensation to roof of mouth and throat. Patient states that symptoms started after drinking lemonade today. Patient concerned that she has strep throat. No other symptoms. All systems reviewed and negative except as noted above. Related Data Home Medications Medication Instructions Recorded Confirmed ergocalciferol (vitamin D2) 1,250 1,250 mcg PO DAILY 08/08/21 08/08/21 mcg (50,000 unit) capsule cephalexin 500 mg capsule 500 mg PO QID 11/06/23 11/06/23 meloxicam 15 mg tablet 15 mg PO DAILY 11/06/23 11/06/23 Allergies Allergy/AdvReac Type Severity Reaction Status Date / Time No Known Allergies Allergy Verified 11/06/23 14:23 Review of Systems Review of Systems: CONSTITUTIONAL: Denies fever, chills, or sweats. EYES: Denies visual changes, redness, or discharge. ENT: Denies rhinorrhea, congestion . Reports sore throat after drinking limiting. Denies otalgia. CARDIOVASCULAR: Denies chest pain, palpitations, or edema. RESPIRATORY: Denies cough or dyspnea. GASTROINTESTINAL: Denies abdominal pain, nausea, vomiting, or diarrhea. GENITOURINARY: Denies dysuria or hematuria. SKIN: Denies rash or itching. MUSCULOSKELETAL: Denies back pain, joint pain, or myalgia. NEUROLOGIC: Denies headache, numbness, or weakness. PSYCHIATRIC: Denies anxiety or depression. All other systems reviewed are negative, except as documented in HPI. [facility] Past Medical History Medical History (Updated 11/07/23 @ 00:10 by Background Dakathia) History of thyroid disease Obesity Surgical History Surgical History H/O section Hx laparoscopic cholecystectomy Family History Family History Mother Hypertension Diabetes mellitus Social History Social History Smoking status: Never smoker Alcohol intake: never Substance use: never Living arrangements: with family Occupation/Education: unemployed Gender identity (if verbalized by the patient): Female Spiritual care concerns: No Comments At time of signature, agree with nursing past medical, surgical, social and family history. There is no relevant family history pertinent to the presenting complaint. Exam Narrative: GENERAL: This is a well-nourished, well-developed patient, in no apparent distress. HEAD: normocephalic, atraumatic. EYES: PERRL. Sclera clear/white. Vision is grossly intact. EARS: External ears normal, auditory canals clear and without drainage, TMs normal without perforation. Hearing grossly intact. NOSE: External nose normal with no obvious nasal discharge, nares without redness, no rhinorrhea. THROAT: Mucous membranes moist, mild erythema to posterior pharynx and to remove mouth without vesicles. No significant swelling or exudates. NECK: Neck supple, non-tender without lymphadenopathy, masses or thyromegaly. CARDIOVASCULAR: Regular rate and rhythm without murmurs, gallops, or rubs. RESPIRATORY: Clear to auscultation. Breath sounds equal bilaterally. No wheezes, rales, or rhonchi. SKIN: warm, Dry, intact with no suspicious lesions or rash, good texture and turgor. NEURO: awake, alert, and oriented to person, place and time. There were no obvious focal neurologic abnormalities. EXTREMITIES: No joint tenderness, effusion, or edema noted. Course Course Level of Care: Express Care Visit Vital Signs Vital signs: Vital Signs Temperature 36.9 C 11/06/23 13:56 Pulse Rate 88 11/06/23 13:56 Respiratory Rate 16 11/06/23 13:56 Blood Pres
== END 2023-11-06 15:05 | disposition home or self-care (01) ==
PROVIDERS: Emergency Provider Nurse Practitioner Family; PCP Physician Assistant
DX: K13.79 Other lesions of oral mucosa (principal); E66.9 Obesity, unspecified; Z68.33 Body mass index [BMI] 33.0-33.9, adult; E07.9 Disorder of thyroid, unspecified
CPT/HCPCS: 87081; 99212; G0463

== ENCOUNTER 2024-07-05 09:08 | Emergency (ER) | payer OTHER, SELFPAY ==
--- NOTE | 2024-07-05 09:09 | ED_ITS ---
HPI - URI/Sore Throat General Chief Complaint: Upper Respiratory Infection Stated Complaint: Throat Pain Time Seen by Provider: 07/05/24 09:09 Source: patient Mode of arrival: ambulatory Limitations: no limitations History of Present Illness HPI Narrative: Patient is a 58-year-old female who presents with over 1 week of nonproductive cough. Reports sore throat started last night. Denies any fever, chills, nause a, vomiting, diarrhea. Reports sore throat is worse in the morning. Has not taken any allergy medicine. Related Data Home Medications Medication Instructions Recorded Confirmed ergocalciferol (vitamin D2) 1,250 1,250 mcg PO DAILY 08/08/21 07/05/24 mcg (50,000 unit) capsule meloxicam 15 mg tablet 15 mg PO DAILY 11/06/23 07/05/24 timolol maleate 0.5 % eye drops 1 drp LEFT EYE BID 07/05/24 07/05/24 Allergies Allergy/AdvReac Type Severity Reaction Status Date / Time No Known Allergies Allergy Verified 07/05/24 09:18 Review of Systems Review of Systems: All systems reviewed & are unremarkable except as noted in HPI and below Constitutional: Constitutional: Denies body ache(s), Denies chills, Denies fatigue, Denies fever(s), Denies headache(s), Denies malaise and Denies weakness Eyes: Eyes: Denies blurry vision, Denies itchy eyes and Denies loss of vision ENT: Denies otalgia, Denies headache(s), Denies nasal congestion, Denies sinus pain and Reports sore throat Cardiovascular: Cardiovascular: Denies chest pain, Denies irregular heart rhythm and Denies dyspnea Respiratory: Respiratory: Reports cough and Denies dyspnea Gastrointestinal: Gastrointestinal: Denies abdominal pain, Denies diarrhea, Denies nausea and Denies vomiting Musculoskeletal: Musculoskeletal: Denies back pain, Denies myalgias and Denies arthralgias Integumentary/Breasts: Skin/Breast: Denies pruritus and Denies rash Neurologic: Denies headache(s), Denies loss of vision and Denies weakness Psychiatric: Psychiatric: Reports no additional psychiatric complaints Endocrine: Endocrine: Denies fatigue Allergic/Immunologic: Allergic/Immunologic: Denies itchy eyes PMFSH Past Medical History Medical History (Updated 07/05/24 @ 09:57 by Caitlin Mirza APRN) History of thyroid disease Obesity Surgical History Surgical History H/O section Hx laparoscopic cholecystectomy Family History Family History Mother Hypertension Diabetes mellitus Social History Social History Smoking status: Never smoker Alcohol intake: never Substance use: never Living arrangements: with family Occupation/Education: unemployed Gender identity (if verbalized by the patient): Female Spiritual care concerns: No Comments At time of signature, agree with nursing past medical, surgical, social and family history. There is no relevant family history pertinent to the presenting complaint. Exam Const: General: cooperative, healthy appearing, comfortable, no acute distress and well nourished Nutritional Appearance: well nourished Orientat ion/consciousness: patient oriented x3 Limitations: no limitations HENMT: Head: normal to inspection, normocephalic and atraumatic Ears: hearing grossly normal bilaterally, external ears normal, TM's normal bilaterally, EAC's normal and no periauricular adenopathy Face/Nose/Sinus: Normal external nose present, Abnormal mucous membranes and turbinates present erythematous bilateral and diffuse, normal facial exam, sinuses nontender and face symmetric Face and sinus: normal facial exam, sinuses nontender and face symmetric Mouth: Yes Normal oral and palatal mucosa present, Yes lip normal, Yes tongue normal, Yes Normal salivary glands and ducts present, Yes oropharynx normal and Yes moist mucous membranes Teeth and gingiva: dentition normal Throat: tonsils normal, uvula midline, posterior oropharynx abnormal erythema and postnasal drainage Eyes: General: appearance normal, both eyes and all related structures Alignment and Position: alignment normal and position normal Periorbital: periorbital findings normal Eyelids: eyelids normal Pupils: Equal, round and reactive pupils present Neck: Neck: normal visual inspection, full ROM, no lymphadenopathy and supple Chest: Chest palpation & inspection: normal inspection of the chest and normal palpation of entire chest wall Resp: Effort & Inspection: normal respiratory effort and able to speak in complete sentences Auscultation: clear to auscultation bilaterally, no crackles, no rales, no rhonchi and no wheezes Cardio: Rate: regular rate Rhythm: regular rhythm Heart sounds: S1 normal heart sound present and S2 normal heart sound present GI: Inspection: normal to inspection Skin: General skin exam: normal color and no rashes or lesions noted Neuro: General: patient oriented x3 and moves all extremities Cranial nerves: Yes Equal, round and reactive pupils present Speech: normal speech Gait exam (Neuro): Normal gait present Extrem: General: normal to inspection, full ROM and no edema Psych: Appearance: grossly normal and well kempt Mental Status: mental status grossly normal Speech and movement: Normal speech and movement present Affect: normal affect Attitude: cooperative Thought process: Normal thought process present Course Course Emergency Course: Patient is aware of diagnosis, understands and agrees to treatment plan. Anticipatory guidance given. Patient agrees to follow-up as directed and is aware of reasons to seek care at the emergency department. Portions of this record may have been created with voice recognition software Level of Care: Express Care Visit Vital Signs Vital signs: Vital Signs Temperature 35.8 C L 07/05/24 09:17 Pulse Rate 89 07/05/24 09:17 Respiratory Rate 16 07/05/24 09:17 Blood Pressure 129/77 07/05/24 09:17 Pulse Oximetry 99 07/05/24 09:17 Oxygen Delivery Room Air 07/05/24 09:17 Temperature 35.8 C L 07/05/24 09:17 Pulse Rate 89 07/05/24 09:17 Respiratory Rate 16 07/05/24 09:17 Blood Pressure 129/77 07/05/24 09:17 Pulse Oximetry 99 07/05/24 09:17 Oxygen Delivery Room Air 07/05/24 09:17 Reviewed MDM - URI/Sore Throat MDM Narrative Medical decision making narrative: Discharge instructions reviewed with patient, as well as provided in writing per nursing staff. The instructions also include specific and strict return/GO TO THE ER as well as f/u information. All questions have been answered, and the patient deny any further questions with discharge and discharge plan. Differential diagnosis considered: Geiger virus, strep pharyngitis, allergic rhinitis, upper respiratory tract infection, sinusitis, rhinosinusitis, nasopharyngitis. viral pharyngitis, otitis media, otitis externa, otitis effusion, foreign body, cerumen impaction, viral syndrome, and influenza.? Exam findings show no acute concerns or changes; patient is non-toxic appearing and is in no distress.? Patient is appropriate for outpatient treatment and follow- up.? Medical Records Attestation: I reviewed the patient's medical records. Lab Data Attestation: I reviewed the patient's lab results. Labs: Lab Results 07/05/24 Range/Units 09:37 POC Grp A Strep Screen Negative (Negative) Discharge Plan Discharge Clinical Impression: Upper respiratory infection Qualifiers: URI type: unspecified viral URI Qualified Code(s): J06.9 - Acute upper respiratory infection, unspecified Patient Disposition: Home, Self-Care Condition: Stable Instructions: Upper Respiratory Infection (ED) Additional Instructions: Use Tessalon Perles as needed for cough. Use inhaler with spacer as needed. Other symptomatic treatments include: -Alternate Tylenol and Motrin per package directions for fever or pain. -Antihistamine medication such as Benadryl at night and Zyrtec/Claritin/Ania during the day can help improve symptoms. -Use Flonase twice a day for 5 days then daily to help reduce the inflammation and dry up your sinuses. -You can also use Sudafed or Mucinex. Be sure to drink plenty of water with these medications at least 8 ounces with every dose and it is important to drink 8 to 10 glasses of water per day. Water is a natural decongestant -Eat and drink things that are easy to swallow, like tea or soup, or popsicles. -Oral rinses such as: Salt water gargles and/or may use topical anesthetic (eg. Chloraseptic spray) or lozenges to relieve dryness or throat pain). -Frequent hand washing or hand sucker machine operator is one of the best ways to prevent spread of infection. -Using a vaporizer or humidifier at night will also help thin secretions and help with coughing up phlegm. -Follow up with primary care provider in 3-5 days if condition is not improving - For new or worsening symptoms go directly to the nearest ER Prescriptions: New benzonatate 100 mg capsule 100 mg PO BID PRN (Reason: cough) Qty: 14 0RF albuterol sulfate 90 mcg/actuation HFA aerosol inhaler 2 puff inhalation QID PRN (Reason: shortness of breath or wheezing) Qty: 6.7 0RF (DME) Aerochamber MV Spacer See Rx Instructions .Route Qty: 1 0RF Rx Instructions: As directed fluticasone propionate [Flonase Allergy Relief] 50 mcg/actuation spray, suspension 1 spray intranasal DAILY Qty: 16 0RF Rx Instructions: administer into each nostril loratadine 10 mg tablet 10 mg PO DAILY Qty: 30 0RF No Action ergocalciferol (vitamin D2) 1,250 mcg (50,000 unit) capsule 1,250 mcg PO DAILY meloxicam 15 mg tablet 15 mg PO DAILY timolol maleate 0.5 % drops 1 drp LEFT EYE BID Follow-up/Referrals: Jose,SEVERO Lopez [Primary Care Provider] - 3 Days Time of Disposition: 09:59
[2024-07-05 09:17] VITALS: BP 129/77; PULSE 89; RESP 16; TEMP 35.8; O2SAT 99
[2024-07-05 09:39] LABS: EDSTREPNEGPOS1 Negative (Negative)
== END 2024-07-05 10:15 | disposition home or self-care (01) ==
PROVIDERS: Emergency Provider Nurse Practitioner Family; PCP Physician Assistant
DX: J06.9 Acute upper respiratory infection, unspecified (principal); E03.9 Hypothyroidism, unspecified; E66.9 Obesity, unspecified; Z68.31 Body mass index [BMI] 31.0-31.9, adult
CPT/HCPCS: 87081; 87880; 99213; G0463

== ENCOUNTER 2024-07-07 16:04 | Outpatient (CLI) | payer OTHER, SELFPAY ==
--- NOTE | ~2024-07-07 | XR_ITS ---
XR chest 2V 07/07/2024 16:22 Indication: Respiratory distress. Procedure: 2 view chest Comparison: Comparison to multiple prior studies sequentially, with oldest reviewed study dated 10/2004. Findings: Left basilar atelectasis/scarring. No acute focal pneumonia, edema, pleural effusion or pne umothorax. There are cholecystectomy clips. No acute osseous abnormality. Impression: 1: No acute cardiopulmonary disease. Reviewed, dictated and finalized at location B. [facility] NURSE Impression: 1: No acute cardiopulmonary disease.
== END 2024-07-07 16:05 | disposition home or self-care (01) ==
PROVIDERS: PCP Physician Assistant; Visit Provider Physician Assistant
DX: R09.89 Other specified symptoms and signs involving the circulatory and respiratory systems (principal)
CPT/HCPCS: 71046

== ENCOUNTER 2024-11-11 10:46 | Emergency (ER) | payer OTHER, SELFPAY ==
[2024-11-11 10:50] VITALS: BP 118/69; PULSE 75; RESP 20; TEMP 36.8; O2SAT 100
--- NOTE | 2024-11-11 11:31 | ED.WOUNDLAC ---
HPI - Wound/Laceration General Chief Complaint: Wound/Laceration Stated Complaint: Right Hand Laceration Time Seen by Provider: 11/11/24 11:24 Source: patient and RN notes reviewed Mode of arrival: ambulatory Limitations: no limitations History of Present Illness HPI narrative: 58-year-old female presents concern for laceration to the dorsal aspect of her right hand. Reports just prior to arrival she was cut her hand on a broken glass. She denies decreased strength, sensation, range of motion in the hand or any digits. She had her last tetanus shot in 2022. Related Data Home Medications ?Medication ?Instructions ?Recorded ?Confirmed ?Last Taken ?Type ergocalciferol (vitamin D2) 1,250 1,250 mcg PO DAILY 08/08/21 07/05/24 Unknown History mcg (50,000 unit) capsule meloxicam 15 mg tablet 15 mg PO DAILY 11/06/23 07/05/24 Unknown History timolol maleate 0.5 % eye drops 1 drp LEFT EYE BID 07/05/24 07/05/24 Unknown History atorvastatin 20 mg tablet mg 11/11/24 Unknown History prednisolone acetate 1 % eye drp 11/11/24 Unknown History drops,suspension valacyclovir 500 mg tablet mg 11/11/24 Unknown History Allergies Allergy/AdvReac Type Severity Reaction Status Date / Time No Known Allergies Allergy Verified 11/11/24 10:52 Review of Systems Review of Systems: CONSTITUTIONAL: Denies malaise, chills, sweats, or fever. SKIN: Reports laceration to the dorsal aspect of the right hand MUSCULOSKELETAL: Denies muscle skeletal pain NEUROLOGIC: Denies numbness, weakness All systems reviewed & are unremarkable except as noted in HPI and below PMFSH Past Medical History Medical History (Updated 11/11/24 @ 11:38 by Anayeli Guerra NP) History of thyroid disease Obesity Surgical History Surgical History Hx laparoscopic cholecystectomy H/O section Family History Family History Mother Hypertension Diabetes mellitus Social History Social History Smoking status: Never smoker Alcohol intake: never Substance use: never Living arrangements: with family Occupation/Education: unemployed Gender identity (if verbalized by the patient): Female Spiritual care concerns: No Comments At time of signature, agree with nursing past medical, surgical, social and family history. There is no relevant family history pertinent to the presenting complaint Exam Narrative: GENERAL: Well-appearing, well-nourished, and in no acute distress. HEAD: Normocephalic EYES: PERRLA, conjunctivae clear NECK: Supple. CHEST: Speaks in full sentences. No respiratory distress. HEART: Regular rate and rhythm. Normal and equal peripheral pulses. EXTREMITIES: Right hand and digits of hand have normal strength and sensation. 5/5 strength with digit flexion, extension. Range of motion normal. No clubbing, cyanosis, or edema noted. No tenderness. Skin intact. Normal digital cascade with flexion of fingers, median, ulnar and radial nerve intact. Normal sensation of each side of finger. Can perform 'okay' sign, 'cross over finger test of index and middle fingers' and 'thumbs up' sign. No scissoring. Normal thumb opposition. Good capillary refill and radial pulse. Distal capillary refill less than 3 seconds. Patient is right/left hand dominant SKIN: Warn, dry, intact, pink. NEURO: Alert and oriented x3. PSYCH: Normal mood and affect Extrem: Hand/finger images:  1. 2 cm linear ear laceration, well-approximated into the subcutaneous tissue Course Course Emergency Course: Patient is aware of diagnosis, understands and agrees to treatment plan. Anticipatory guidance given. Patient agrees to follow-up as directed and is aware of reasons to seek care at the emergency department. Portions of this record may have been created with voice recognition software Level of Care: Express Care Visit Vital Signs Vital signs: Vital Signs Temperature 98.2 F 11/11/24 10:50 Pulse Rate 75 11/11/24 10:50 Respiratory Rate 20 11/11/24 10:50 Blood Pressure 118/69 11/11/24 10:50 Pulse Oximetry 100 11/11/24 10:50 Oxygen Delivery Room Air 11/11/24 10:50 Temperature 98.2 F 11/11/24 10:50 Pulse Rate 75 11/11/24 10:50 Respiratory Rate 20 11/11/24 10:50 Blood Pressure 118/69 11/11/24 10:50 Pulse Oximetry 100 11/11/24 10:50 Oxygen Delivery Room Air 11/11/24 10:50 Reviewed. Procedures Laceration Laceration 1: Date: 11/11/24 Time: 11:38 Site: hand Side (If applicable): right Size (cm): 2 Description: linear Depth: simple, single layer Pre-repair: wound explored and irrigated ====== Skin Level ====== Skin layer closed with: dermabond and steri strips ====== Subcutaneous Layer ====== ====== Muscle Layer ====== ====== Tendon Layer ====== MDM - Wound/Laceration MDM Narrative Medical decision making narrative: Wound explored for foreign body and copious irrigation provided with no evidence of FB. Discussed the potential of retained foreign body with the patient and signs/symptoms that should prompt the patient to immediately go to the ED for reevaluation. The wound was explored and no foreign bodies were found. There was no evidence of tendon or nerve lacerations. Anticipatory guidance was provided. Tetanus prophylaxis was not given Differential Diagnosis Differential diagnosis: Likely laceration, abrasion and avulsion of skin Critical Care Time Critical Care Time Critical Care Time: No Discharge Plan Discharge Clinical Impression: Laceration Patient Disposition: Home Condition: Stable Instructions: Laceration (ED) Additional Instructions: Skin adhesive care: -adhesive works like a bandage; do not use antibiotic ointment as it can break down the adhesive -You can shower while the adhesive is on your skin, but do not take a bath or soak or scrub the area for 7-10 days. Dry your skin by patting it gently with a towel. -The adhesive will peel off on its own; usually by 5-10days. If after 10 days, you still have adhesive on you, you can use antibiotic ointment or petroleum jelly to get it off. After you heal, you should protect the scar from the sun. Use sunscreen on the area or wear clothes or a hat that covers the scar. Follow up with your PCP as needed If you have any worsening of symptoms, redness, swelling, fever, or drainage, or any other concerns please follow up with your PCP or go to the ED immediately. Patient Language: Pakistani Prescriptions: No Action ergocalciferol (vitamin D2) 1,250 mcg (50,000 unit) capsule 1,250 mcg PO DAILY meloxicam 15 mg tablet 15 mg PO DAILY timolol maleate 0.5 % drops 1 drp LEFT EYE BID atorvastatin 20 mg tablet valacyclovir 500 mg tablet prednisolone acetate 1 % drops,suspension Follow-up/Referrals: Jose,SEVERO Lopez [Primary Care Provider] - Time of Disposition: 11:37
== END 2024-11-11 11:55 | disposition home or self-care (01) ==
PROVIDERS: Emergency Provider Nurse Practitioner; PCP Physician Assistant
DX: S61.411A Laceration without foreign body of right hand, initial encounter (principal); W25.XXXA Contact with sharp glass, initial encounter; E07.9 Disorder of thyroid, unspecified; E66.9 Obesity, unspecified; Z68.31 Body mass index [BMI] 31.0-31.9, adult
CPT/HCPCS: 12001; 99212; G0463